=== PATIENT | female | born 1995 | race Caucasian/White ===

== ENCOUNTER 2017-04-12 14:40 | Emergency (ER) | payer OTHER ==
[~2017-04-12] VITALS: Ht 157.5 cm; Wt 70.0 kg
[2017-04-12 14:49] VITALS: Ht 157.5 cm; Wt 70.0 kg
--- NOTE | 2017-04-12 15:14 | ERD ---
ER Documentation Chief Complaint Date/Time DATE: 04/12/17 TIME: 15:11 Chief Complaint 16 weeks , shakey x 3 days HPI This is a 21-year-old female presenting to emergency department with nausea, vomiting, dizziness and feeling "shaky" for the past 3 days. Patient states she is about 16 weeks with unknown last menstrual period. Patient is a A0 with no past medical or surgical history. Patient states her mom has history of preeclampsia. Patient states she has felt nauseous and has been vomiting 4 times for the past 3 days especially at night. Patient states despite that she is eating and drinking well. No fevers or chills. No cough, sore throat, headache or recent URI. No vaginal bleeding or vaginal discharge. No pelvic or abdominal pain. No back or flank pain. No dysuria, hematuria, urinary frequency or urinary urgency. Patient's SINGER BACK TENDER is Dr. Lopez. ROS All systems reviewed and are negative except as per history of present illness. Medications Home Meds Active Scripts Acetaminophen* (Tylenol*) 325 Mg Tablet, 1 TAB PO Q6 Y for PAIN AND OR ELEVATED TEMP, #20 TAB Prov:KARINE JAVIER NP 04/12/17 Ciprofloxacin Hcl* (Ciprofloxacin Hcl*) 500 Mg Tablet, 500 MG PO BID for 3 Days , TAB Prov:KARINE JAVIER NP 04/12/17 Allergies Allergies: Uncoded Allergies: PCN (Allergy, Mild, RASH, 12/30/12) PMhx/Soc Medical and Surgical Hx: pt denies Medical Hx, pt denies Surgical Hx Hx Alcohol Use: No Hx Substance Use: No Hx Tobacco Use: No Physical Exam Vitals Vital Signs Date Time Temp Pulse Resp B/P Pulse Ox O2 Delivery O2 Flow Rate FiO2 04/12/17 14:49 98.1 78 20 90/55 99 Physical Exam Const: No acute distress, alert, oriented to person place and time. Head: Atraumatic Eyes: Normal Conjunctiva ENT: Normal External Ears, Nose and Mouth. Neck: Full range of motion..~ No meningismus. Resp: Clear to auscultation bilaterally. No wheezing, rhonchi or crackles. No stridor or labored breathing. Cardio: Regular rate and rhythm, no murmurs Abd: Soft, non tender, non distended. Normal bowel sounds Skin: No petechiae or rashes Back: No midline or flank tenderness. No CVA tenderness. Ext: No cyanosis, or edema Neur: Awake and alert Psych: Normal Mood and Affect Result Diagram: 04/12/17 1520 04/12/17 1520 Results 24 hrs Laboratory Tests Test 04/12/17 15:20 04/12/17 15:47 04/12/17 16:38 White Blood Count 7.410^3/ul Red Blood Count 3.9110^6/ul Hemoglobin 11.6g/dl Hematocrit 35.2% Mean Corpuscular Volume 90.0fl Mean Corpuscular Hemoglobin 29.7pg Mean Corpuscular Hemoglobin Concent 33.0g/dl Red Cell Distribution Width 12.6% Platelet Count 84335^3/UL Mean Platelet Volume 10.4fl Neutrophils % 71.5% Lymphocytes % 20.0% Monocytes % 6.6% Eosinophils % 1.2% Basophils % 0.3% Nucleated Red Blood Cells % 0.0/100WBC Neutrophils # 5.310^3/ul Lymphocytes # 1.510^3/ul Monocytes # 0.510^3/ul Eosinophils # 0.110^3/ul Basophils # 0.010^3/ul Nucleated Red Blood Cells # 0.010^3/ul Sodium Level 142mmol/L Potassium Level 3.9mmol/L Chloride Level 103mmol/L Carbon Dioxide Level 24mmol/L Anion Gap 19 Blood Urea Nitrogen 9mg/dl Creatinine 0.75mg/dl Glucose Level 90mg/dl Calcium Level 9.2mg/dl Total Bilirubin 0.1mg/dl Direct Bilirubin 0.00mg/dl Indirect Bilirubin 0.1mg/dl Aspartate Amino Transf (AST/SGOT) 17IU/L Alanine Aminotransferase (ALT/SGPT) 19IU/L Alkaline Phosphatase 43IU/L Total Protein 7.2g/dl Albumin 4.2g/dl Globulin 3.00g/dl Albumin/Globulin Ratio 1.40 Bedside Urine pH (LAB) 7.0 Bedside Urine Protein (LAB) Negative Bedside Urine Glucose (UA) Negative Bedside Urine Ketones (LAB) Negative Bedside Urine Blood Negative Bedside Urine Nitrite (LAB) Negative Bedside Urine Leukocyte Esterase (L 1+ Urine Color STRAW Urine Clarity CLEAR Urine pH 7.0 Urine Specific [place] 1.012 Urine Ketones NEGATIVEmg/dL Urine Nitrite NEGATIVEmg/dL Urine Bilirubin NEGATIVEmg/dL Urine Urobilinogen NEGATIVEmg/dL Urine Leukocyte Esterase 3+Nigel/ul Urine Microscopic RBC 0/HPF Urine Microscopic WBC 1/HPF Urine Squamous Epithelial Cells FEW/HPF Urine Hemoglobin NEGATIVEmg/dL Urine Glucose NEGATIVEmg/dL Urine Total Protein NEGATIVEmg/dl Current Medications Medications (Trade) Dose Ordered Sig/Gui Route PRN Reason Start Time Stop Time Status Last Admin Dose Admin Sodium Chloride 1,000 ml @ 1,000 mls/hr Q1H ONCE IV 04/12/17 15:30 04/12/17 16:29 DC 04/12/17 15:30 Ceftriaxone Sodium (Rocephin) 50 ml @ 100 mls/hr ONCE ONCE IVPB 04/12/17 18:00 04/12/17 18:29 DC 04/12/17 17:57 Procedures/MDM EKG: As interpreted by myself and Dr. Verdin Rate/Rhythm: Normal sinus rhythm with heart rate 70 bpm QRS, ST, T-waves: No changes consistent w/ acute ischemia Impression: No evidence of ischemia or arrhythmia MDM: This is a 21-year-old female who is approximately 16 weeks presents emergency department with nausea, vomiting, dizziness and feeling "shaky" for the past 3 days. Upon arrival, patient's vital signs are stable. Patient is afebrile. No signs or symptoms of respiratory distress. No active vomiting or diarrhea. Patient states she is eating and drinking well at home. UA shows 3+ leukocytosis otherwise negative. Patient given Rocephin 1 g IV piggyback. Labs are unremarkable without significant anemia, infection or electrolyte imbalance. Patient remained stable throughout ED visit. Vitals are stable. Patient likely has UTI. Low suspicion for pyelonephritis or nephrolithiasis. Normal creatinine and BUN. Patient is appropriate for outpatient management and will be given prescription for Cipro 500 mg twice daily 3 days and Tylenol 325 mg #20. Instructed patient to follow-up with PCP or [employer]ER in the next 2-3 days for reassessment. Return to ED for any high fever, chest pain, difficulty breathing, shortness breath, wheezing, vomiting, diarrhea, abdominal pain or any new or worsening symptoms. Patient verbalizes understanding. All questions answered at discharge. Departure Diagnosis: Primary Impression: UTI (urinary tract infection) Urinary tract infection type: acute cystitis Hematuria presence: without hematuria Qualified Code: N30.00 - Acute cystitis without hematuria Condition: Stable KARINE JAVIER NP Apr 12, 2017 15:14
[2017-04-12 15:29] LABS: BASOPHILS % 0.3 % (0.0-2.0); EOSINOPHILS # 0.1 10^3/ul (0.0-0.5); EOSINOPHILS % 1.2 % (0.0-7.0); HEMATOCRIT 35.2 % (37.0-47.0); HEMOGLOBIN 11.6 g/dl (12.0-16.0); LYMPHOCYTES # 1.5 10^3/ul (0.8-2.9); MEAN CORPUSCULAR HEMOGLOBIN 29.7 pg (29.0-33.0); MEAN PLATELET VOLUME 10.4 fl (7.4-10.4); MONOCYTE # 0.5 10^3/ul (0.3-0.9); MONOCYTES % 6.6 % (0.0-13.0); NEUTROPHIL # 5.3 10^3/ul (1.6-7.5); NEUTROPHILS % 71.5 % (30.0-74.0); PLATELET COUNT 210 10^3/UL (140-415); RED BLOOD COUNT 3.91 10^6/ul (4.20-5.40); RED CELL DISTRIBUTION WIDTH 12.6 % (11.5-14.5); WHITE BLOOD COUNT 7.4 10^3/ul (4.8-10.8)
[2017-04-12] MEDS ORDERED: SOD CHLORIDE 0.9% 1,000 ML IV ONE (15:30)
[2017-04-12 15:41] LABS: URINE BLOOD (Dip) POC Negative (NEGATIVE)
[2017-04-12 15:57] LABS: ALBUMIN 4.2 g/dl (3.3-4.9); ALBUMIN/GLOBULIN RATIO 1.4; BILIRUBIN,INDIRECT 0.1 mg/dl (0-1.1); BILIRUBIN,TOTAL 0.1 mg/dl (0.2-1.3); CALCIUM 9.2 mg/dl (8.4-10.2); CREATININE 0.75 mg/dl (0.44-1.00); POTASSIUM 3.9 mmol/L (3.5-5.1); TOTAL PROTEIN 7.2 g/dl (6.1-8.1)
[2017-04-12 17:30] LABS: ADD UMIC YES; UR ASCORBIC ACID 20 mg/dL (NEGATIVE); UR BILIRUBIN (Dip) NEGATIVE (NEGATIVE); UR BLOOD (Dip) NEGATIVE (NEGATIVE); UR CLARITY CLEAR (CLEAR); UR COLOR STRAW (YELLOW); UR GLUCOSE (Dip) NEGATIVE (NEGATIVE); UR KETONES (Dip) NEGATIVE (NEGATIVE); UR LEUKOCYTE ESTERASE (Dip) 3+ Leu/ul (NEGATIVE); UR NITRITE (Dip) NEGATIVE (NEGATIVE); UR RBC 0 /HPF (0-5); UR SPECIFIC GRAVITY (Dip) 1.012 (1.003-1.030); UR SQUAMOUS EPITHELIAL CELL FEW /HPF (FEW); UR TOTAL PROTEIN (Dip) NEGATIVE (NEGATIVE); UR UROBILINOGEN (Dip) NEGATIVE (NEGATIVE)
[2017-04-12] MEDS ORDERED: CEFTRIAXONE 1 GM/50 ML (PMX) 50 ML IVPB ONE (18:00)
[2017-04-12] MEDS ORDERED: ACET325T33 PO (18:54)
[2017-04-12] MEDS ORDERED: CIPR500T4 PO (18:54)
[2017-04-12 19:12] VITALS: BP 109/62; PULSE 64; RESP 16; TEMP 98.2
== END 2017-04-12 19:14 | disposition home or self-care (01) ==
LOC: FTE 14:40
DX: O23.12 Infections of bladder in pregnancy, second trimester (principal); R42 Dizziness and giddiness; Z3A.16 16 weeks gestation of pregnancy
CPT/HCPCS: 80053; 81001; 85025; 93005; 96374; J0696; J7030; Z7502; 81003